=== PATIENT | female | born 1990 | race African-American/Black ===

== ENCOUNTER 2017-06-30 22:08 | Emergency (ER) | payer OTHER ==
[2017-06-30 22:31] VITALS: BP 110/70; BMI 27.6
[2017-06-30 22:50] LABS: BILIRUBIN,URINE NEGATIVE (NEGATIVE); BLOOD/HEMOGLOBIN,URINE 1+ (NEGATIVE); GLUCOSE, URINE NEGATIVE (NEGATIVE); KETONES,URINE NEGATIVE (NEGATIVE); LEUKOCYTE ESTERASE ,URINE NEGATIVE (NEGATIVE); NITRITES,URINE NEGATIVE (NEGATIVE); PROTEIN,URINE 1+ (NEGATIVE); UROBILINOGEN,URINE 1+ (NORMAL)
[2017-06-30 23:05] LABS: APPEARANCE,URINE CLEAR (CLEAR); BACTERIA,URINE 1+ /HPF (NEGATIVE); CALCIUM OXALATE CRYSTALS,UR MODERATE /HPF (NEGATIVE); COLOR,URINE YELLOW (YELLOW); RBC,URINE 0-3 /HPF (NEGATIVE); SQUAMOUS EPITHELIAL CELL,UR MODERATE /HPF (NEGATIVE)
[2017-06-30] MEDS ORDERED: MACROBID CAP 100 MG EXT REL PO ONE (23:48)
[2017-07-01] MEDS ORDERED: MACROBID CAP 100 MG EXT REL PO ONE (23:34)
== END 2017-06-30 23:59 | disposition home or self-care (01) ==
LOC: ER 22:08
DX: R10.84 Generalized abdominal pain (principal); O26.853 Spotting complicating pregnancy, third trimester; Z3A.26 26 weeks gestation of pregnancy
CPT/HCPCS: 81001; 99284

== ENCOUNTER 2017-07-08 19:29 | Emergency (ER) | payer OTHER ==
[2017-07-08 19:37] VITALS: BMI 28.0
--- NOTE | 2017-07-08 20:09 | DR.GENAD ---
HPI - PCP Primary Care Physician: maribel - Complaint/Symptoms Chief Complaint:: PELVIC/BACK PAIN STOMACH TENDERNESS, SPOTTING AND VOMITING - Nurses notes reviewed Nurses Notes Review: Yes - Source History Provided: Patient - Mode of Arrival Mode of Arrival: Ambulatory - Timing Onset of Chief Complaint: 07/08/17 Came on: Gradually - Duration Duration: Constant Duration: Days - Severity Severity: Moderate PMH - PMH Past Medical History: Yes Past Medical History: Anemia, Kidney Stones Past Surgical History: Yes Surgical History: , Lithotripsy Past Surgical History Comment: UTERINE RUPTURE REPAIR - Family History History of Family Medical Conditions: Yes Family Medical History: Diabetes Mellitus, Cancer, Hypertension - Social History Does patient currently use any type of tobacco product: No Have you used tobacco products in the last 12 months: No Type of Tobacco Use: None Does any household member use tobacco: No Alcohol Use: None Do you use any recreational Drugs:: No Lives With: Family Lives Where: Home - infectious screening In the last 2 months have you had wt loss of >10#?: NO Have you had fever, night sweats or hemotysis?: No Have you traveled outside the country in the last 6 months?: No Isolation: Standard PE - Vital Signs Vitals: Temperature 98 F Pulse Rate [Left Radial] 61 Pulse Rate 104 Respiratory Rate 18 Blood Pressure [Left Arm] 113/57 Blood Pressure 98/59 O2 Sat by Pulse Oximetry 100 ROR - Labs Reviewed Laboratory: Specimen Type Clean catch urine 07/08/17 19:55 Urine Color Dark yellow (YELLOW) 07/08/17 19:55 Urine Appearance Slightly hazy (CLEAR) 07/08/17 19:55 Urine pH 6.5 (5.0 - 8.0) 07/08/17 19:55 Ur Specific [place] 1.020 (1.000-1.030) 07/08/17 19:55 Urine Protein 1+ (NEGATIVE) 07/08/17 19:55 Urine Glucose (UA) Negative (NEGATIVE) 07/08/17 19:55 Urine Ketones Negative (NEGATIVE) 07/08/17 19:55 Urine Occult Blood 1+ (NEGATIVE) 07/08/17 19:55 Urine Nitrite Negative (NEGATIVE) 07/08/17 19:55 Urine Bilirubin Negative (NEGATIVE) 07/08/17 19:55 Urine Urobilinogen 1+ (NORMAL) 08/28/17 19:55 Ur Leukocyte Esterase Negative (NEGATIVE) 07/08/17 19:55 Urine RBC 3-5 /HPF (NEGATIVE) 07/08/17 19:55 Urine WBC 2-3 /HPF (NEGATIVE) 07/08/17 19:55 Ur Squamous Epith Cells Numerous /HPF (NEGATIVE) 07/08/17 19:55 Amorphous Sediment 1+ /HPF (NEGATIVE) 07/08/17 19:55 Urine Bacteria 2+ /HPF (NEGATIVE) 07/08/17 19:55 Urine Mucus Many /HPF (NEGATIVE) 07/08/17 19:55 Ur Culture Indicated? No/not indicated 07/08/17 19:55 - Discharge Plan Disposition: HOME, SELF-CARE Condition: Stable Prescriptions: Nitrofurantoin Macro [Macrobid Cap 100 mg Ext Rel] 100 mg PO BID #14 cap - Follow ups/Referrals Follow ups/Referrals: ALIREZA HERNANDEZ [Primary Care Provider] - 3 days - Instructions Instructions: Third Trimester of , [id number], Urinary Tract Infection, Adult, Cygz-ms-Nxpy, Hand Washing, [id number] Additional Instructions: Return to ER for increase pain, decrease in movement, water breaks, bright red vaginal bleeding. Keep all schedule appointments with and appointments in [place]. Increase PO intake of water.
[2017-07-08 20:27] LABS: BILIRUBIN,URINE NEGATIVE (NEGATIVE); BLOOD/HEMOGLOBIN,URINE 1+ (NEGATIVE); GLUCOSE, URINE NEGATIVE (NEGATIVE); KETONES,URINE NEGATIVE (NEGATIVE); LEUKOCYTE ESTERASE ,URINE NEGATIVE (NEGATIVE); NITRITES,URINE NEGATIVE (NEGATIVE); PH,URINE 6.5 (5.0 - 8.0); PROTEIN,URINE 1+ (NEGATIVE); UROBILINOGEN,URINE 1+ (NORMAL)
[2017-07-08 20:32] VITALS: BP 113/57
[2017-07-08 20:35] LABS: AMORPHOUS SEDIMENT,UR 1+ /HPF (NEGATIVE); APPEARANCE,URINE SLIGHTLY HAZY (CLEAR); BACTERIA,URINE 2+ /HPF (NEGATIVE); COLOR,URINE DARK YELLOW (YELLOW); SQUAMOUS EPITHELIAL CELL,UR NUMEROUS /HPF (NEGATIVE)
[2017-07-08 20:36] LABS: MUCUS,URINE MANY /HPF (NEGATIVE)
[2017-07-08] MEDS ORDERED: MACROBID CAP 100 MG EXT REL PO ONE (20:48)
[2017-07-08] MEDS ORDERED: MACROBID CAP 100 MG EXT REL PO SCH (21:00)
== END 2017-07-08 21:02 | disposition home or self-care (01) ==
LOC: ER 19:43
DX: O23.43 Unspecified infection of urinary tract in pregnancy, third trimester (principal); R10.84 Generalized abdominal pain; Z3A.00 Weeks of gestation of pregnancy not specified
CPT/HCPCS: 81001; 99284

== ENCOUNTER 2017-08-10 10:53 | Emergency (ER) | payer OTHER ==
[2017-08-10 11:04] VITALS: BMI 28.0
[2017-08-10 12:08] LABS: BILIRUBIN,URINE NEGATIVE (NEGATIVE); BLOOD/HEMOGLOBIN,URINE 1+ (NEGATIVE); GLUCOSE, URINE NEGATIVE (NEGATIVE); KETONES,URINE NEGATIVE (NEGATIVE); LEUKOCYTE ESTERASE ,URINE NEGATIVE (NEGATIVE); NITRITES,URINE NEGATIVE (NEGATIVE); PH,URINE 6.5 (5.0 - 8.0); PROTEIN,URINE NEGATIVE (NEGATIVE); UROBILINOGEN,URINE 1+ (NORMAL)
[2017-08-10 12:18] LABS: APPEARANCE,URINE CLEAR (CLEAR); COLOR,URINE YELLOW (YELLOW); RBC,URINE 0-4 /HPF (NEGATIVE)
[2017-08-10 12:19] LABS: BACTERIA,URINE 1+ /HPF (NEGATIVE); SQUAMOUS EPITHELIAL CELL,UR NUMEROUS /HPF (NEGATIVE); YEAST,URINE MODERATE /HPF (NEGATIVE)
[2017-08-10] MEDS ORDERED: LR 1000 ML IV 1,000 ML IV ONE (12:28)
[2017-08-10] MEDS ORDERED: PHENERGAN INJ 25 MG ONE (12:28)
[2017-08-10] MEDS ORDERED: NS 50 ML IV 50 ML IV ONE (12:28)
[2017-08-10] MEDS ORDERED: PHENERGAN INJ 25 MG IVP ONE (12:30)
[2017-08-10] MEDS ORDERED: NS 1000 ML 1,000 ML IV ONE (12:30)
[2017-08-10 12:50] LABS: AMNISURE ROM TEST NO MEMBRANES RUPTURE (NO RUPTURE)
[2017-08-10 13:32] VITALS: BP 108/68
--- NOTE | 2017-08-11 09:17 | DR.PREG ---
HPI - PCP Primary Care Physician: JOURDAN - Chief Complaint Chief Complaint:: CONTRACTIONS AN PAIN IN LOWER ABDOMEN, BACK AND THIGHS. 32 WEEKS . WENT TO DR. WALL ON Saturday08/07/2017 - Source History Provided: Patient - Mode of Arrival Mode of Arrival: Ambulatory - Context : 5 Para: 4 - Timing Onset of Chief Complaint: 08/10/17 Pain: Regular - Duration Pain Strength: Moderate PMH - PMH Past Medical History: Yes Past Medical History: Anemia, Kidney Stones Past Medical History Comment: KIDNEY, URTERY RUPUTURED, HAVE WORN HEART MONITOR FOR DR. BARAKAT WAS SUPPOSE TO BE GETTING RESULTS BACK SOON. Past Surgical History: Yes Surgical History: , Lithotripsy Past Surgical History Comment: HERNIA - Family History History of Family Medical Conditions: Yes Family Medical History: Diabetes Mellitus, Cancer, Hypertension - Social History Does any household member use tobacco: No Alcohol Use: None Do you use any recreational Drugs:: No Lives With: Family Lives Where: Home - infectious screening In the last 2 months have you had wt loss of >10#?: NO Have you had fever, night sweats or hemotysis?: No Have you traveled outside the country in the last 6 months?: No Isolation: Standard PE - Vital Signs Vitals: Temperature 98.6 F Pulse Rate [Right Radial] 85 Pulse Rate 97 Respiratory Rate 18 Blood Pressure [Left Arm] 108/68 Blood Pressure 116/66 O2 Sat by Pulse Oximetry 100 ROR - Labs Reviewed Laboratory: Specimen Type Clean catch urine 08/10/17 11:32 Urine Color Yellow (YELLOW) 08/10/17 11:32 Urine Appearance Clear (CLEAR) 08/10/17 11:32 Urine pH 6.5 (5.0 - 8.0) 08/10/17 11:32 Ur Specific [place] 1.015 (1.000-1.030) 08/10/17 11:32 Urine Protein Negative (NEGATIVE) 08/10/17 11:32 Urine Glucose (UA) Negative (NEGATIVE) 08/10/17 11:32 Urine Ketones Negative (NEGATIVE) 08/10/17 11:32 Urine Occult Blood 1+ (NEGATIVE) 08/10/17 11:32 Urine Nitrite Negative (NEGATIVE) 08/10/17 11:32 Urine Bilirubin Negative (NEGATIVE) 08/10/17 11:32 Urine Urobilinogen 1+ (NORMAL) 08/10/17 11:32 Ur Leukocyte Esterase Negative (NEGATIVE) 08/10/17 11:32 Urine RBC 0-4 /HPF (NEGATIVE) 08/10/17 11:32 Urine WBC None seen /HPF (NEGATIVE) 08/10/17 11:32 Ur Squamous Epith Cells Numerous /HPF (NEGATIVE) 08/10/17 11:32 Urine Bacteria 1+ /HPF (NEGATIVE) 08/10/17 11:32 Urine Yeast Moderate /HPF (NEGATIVE) 08/10/17 11:32 Ur Culture Indicated? No/not indicated 08/10/17 11:32 Placental [id number] No membranes rupture (NO RUPTURE) 08/10/17 12:30 - Discharge Plan Disposition: 01 HOME, SELF-CARE Condition: Stable Prescriptions: Terconazole Vaginal Crm 4 % [Terazol-7] 1 applic VG HS #45 gm - Follow ups/Referrals Follow ups/Referrals: ALIREZA HERNANDEZ [Primary Care Provider] - 3 days - Instructions Instructions: Third Trimester of , Khtu-ja-Bash, Vaginitis, Easy-to- Read, Personal Hygiene Additional Instructions: RETURN TO THE ER FOR BRIGHT RED VAGINAL BLEEDING, SPONTANEOUS RUPTURE OF MEMBRANES, INCREASE IN PAIN, DECREASE IN MOVEMENT. KEEP ALL SCHEDULE APPOINTMENTS WITH .
== END 2017-08-10 13:30 | disposition home or self-care (01) ==
LOC: ER 11:12
DX: O60.03 Preterm labor without delivery, third trimester (principal); Z3A.32 32 weeks gestation of pregnancy
CPT/HCPCS: 81001; 84112; 99284; A4222; J2550; J7120

== ENCOUNTER 2017-08-21 21:58 | Emergency (ER) | payer OTHER ==
[2017-08-21 22:05] VITALS: BP 105/72; BMI 28.0
[2017-08-21 22:38] LABS: BILIRUBIN,URINE NEGATIVE (NEGATIVE); BLOOD/HEMOGLOBIN,URINE 3+ (NEGATIVE); GLUCOSE, URINE NEGATIVE (NEGATIVE); KETONES,URINE 1+ (NEGATIVE); LEUKOCYTE ESTERASE ,URINE 1+ (NEGATIVE); NITRITES,URINE NEGATIVE (NEGATIVE); PROTEIN,URINE 1+ (NEGATIVE); UROBILINOGEN,URINE 2+ (NORMAL)
[2017-08-21 22:47] LABS: APPEARANCE,URINE HAZY (CLEAR); COLOR,URINE YELLOW (YELLOW)
[2017-08-21 22:48] LABS: BACTERIA,URINE 1+ /HPF (NEGATIVE); MUCUS,URINE FEW /HPF (NEGATIVE); SQUAMOUS EPITHELIAL CELL,UR NUMEROUS /HPF (NEGATIVE)
== END 2017-08-21 23:38 | disposition home or self-care (01) ==
LOC: ER 22:11
DX: R10.2 Pelvic and perineal pain (principal); R07.89 Other chest pain; R06.02 Shortness of breath; Z3A.34 34 weeks gestation of pregnancy
CPT/HCPCS: 81001; 99284

== ENCOUNTER 2017-08-23 19:23 | Emergency (ER) | payer OTHER ==
[2017-08-23 20:00] VITALS: BP 107/58; BMI 28.0
[2017-08-23] MEDS ORDERED: NS 1000 ML 1,000 ML IV ONE (20:47)
[2017-08-23] MEDS ORDERED: NS 1000 ML 1,000 ML ONE (20:49)
== END 2017-08-23 22:12 | disposition home or self-care (01) ==
LOC: ER 19:35
DX: O60.03 Preterm labor without delivery, third trimester (principal); Z3A.34 34 weeks gestation of pregnancy
CPT/HCPCS: 93005; 93010; 96365; 99284; A4222